=== PATIENT | female | born 1995 | race Caucasian/White ===

== ENCOUNTER 2021-03-30 00:17 | Emergency (ER) | payer OTHER, SELFPAY ==
--- NOTE | ~2021-03-30 | CT_ITS ---
EXAMINATION: NONCONTRAST HEAD CT NONCONTRAST CERVICAL SPINE CT INDICATION INFORMATION: Fall, syncope, neck pain COMPARISON: 09/07/2008 TECHNIQUE: Separate noncontrast CT examinations of the head and cervical spine were performed. Coronal head CT images and coronal and sagittal cervical spine images were created at the technologist workstation. DLP: 892 mGy-cm DOSE LOWERING TECHNIQUES: This CT examination was performed using dose optimization techniques as appropriate, variously including the following: - Automated exposure control - Adjustment of mA and/or kV according to patient size (this includes techniques or standardized protocols for targeted exams were dose is matched to indication/reason for exam; i.e. extremities or head) - Use of iterative reconstruction technique FINDINGS: Head: There is no evidence of acute intracranial hemorrhage or territorial infarction. No abnormal mass-effect or midline shift is seen. Engel to white matter differentiation is well preserved. No extra-axial fluid collections are identified. The ventricles are normal in size. There is no abnormal attenuation within the brain parenchyma. The osseous structures and soft tissues are normal. The mastoid air cells are well-aerated. There is mucosal thickening of the maxillary sinuses and anterior ethmoid air cells. Cervical spine: There is anatomic alignment of the vertebral bodies and posterior elements. Vertebral body heights are maintained. Intervertebral disc spaces are preserved. No evidence of acute fracture. No prevertebral soft tissue swelling. Visualized portions of the lung apices are unremarkable. The thyroid gland appears somewhat heterogeneous. CT/CT cervical spine wo con IMPRESSION: No acute findings identified in the head or cervical spine.
--- NOTE | ~2021-03-30 | CT_ITS ---
EXAMINATION: NONCONTRAST HEAD CT NONCONTRAST CERVICAL SPINE CT INDICATION INFORMATION: Fall, syncope, neck pain COMPARISON: 09/07/2008 TECHNIQUE: Separate noncontrast CT examinations of the head and cervical spine were performed. Coronal head CT images and coronal and sagittal cervical spine images were created at the technologist workstation. DLP: 892 mGy-cm DOSE LOWERING TECHNIQUES: This CT examination was performed using dose optimization techniques as appropriate, variously including the following: - Automated exposure control - Adjustment of mA and/or kV according to patient size (this includes techniques or standardized protocols for targeted exams were dose is matched to indication/reason for exam; i.e. extremities or head) - Use of iterative reconstruction technique FINDINGS: Head: There is no evidence of acute intracranial hemorrhage or territorial infarction. No abnormal mass-effect or midline shift is seen. Engel to white matter differentiation is well preserved. No extra-axial fluid collections are identified. The ventricles are normal in size. There is no abnormal attenuation within the brain parenchyma. The osseous structures and soft tissues are normal. The mastoid air cells are well-aerated. There is mucosal thickening of the maxillary sinuses and anterior ethmoid air cells. Cervical spine: There is anatomic alignment of the vertebral bodies and posterior elements. Vertebral body heights are maintained. Intervertebral disc spaces are preserved. No evidence of acute fracture. No prevertebral soft tissue swelling. Visualized portions of the lung apices are unremarkable. The thyroid gland appears somewhat heterogeneous. CT/CT head/brain wo con IMPRESSION: No acute findings identified in the head or cervical spine.
--- NOTE | ~2021-03-30 | XR_ITS ---
EXAMINATION: XR HIP, LEFT CLINICAL INFORMATION: Fall with left hip pain COMPARISON: 12/30/2018 TECHNIQUE: Two views of the left hip. FINDINGS: Alignment across the hips is anatomic, and joint spaces are preserved. No acute fracture is seen. Sacroiliac joints appear intact. XR/XR hip LT w PEL1V IMPRESSION: No acute findings.
--- NOTE | 2021-03-30 00:37 | ECG_ITS ---
Test Reason : SYNCOPAL EPISODE Blood Pressure : / mmHG Vent. Rate : 067 BPM Atrial Rate : 067 BPM P-R Int : 156 ms QRS Dur : 092 ms QT Int : 428 ms P-R-T Axes : 034 016 022 degrees QTc Int : 452 ms Sinus rhythm with marked sinus arrhythmia Otherwise normal ECG When compared with ECG of 07-SEP-2008 19:07, No significant changes seen Referred By: Denice Fallon Electronically Signed By:Chaim Leos
--- NOTE | 2021-03-30 00:41 | ED_ITS ---
HPI - General Adult General Chief complaint: Fall Stated complaint: fall w/ head strike + LOC Time Seen by Provider: 03/30/21 00:36 Source: patient and EMS Mode of arrival: EMS Limitations: no limitations History of Present Illness HPI narrative: 25-year-old female came in by ambulance for evaluation after her syncopal episode. Patient was standing eating then felt nauseous, the patient passed out with complete loss of consciousness, patient had her head and complaining of neck pain, patient regained her consciousness few minutes after, patient is complaining of headache and neck pain, and left hip pain, patient declined any chest pain, no shortness of breath. Never had this symptoms in the past. Related Data Home Medications Medication Instructions Recorded Confirmed calcium carbonate-vitamin tab PO 08/16/20 08/16/20 D2-minerals tablet citalopram 20 mg tablet 20 mg PO DAILY 08/16/20 08/16/20 clonidine HCl 0.1 mg tablet 0.1 mg PO BID 08/16/20 08/16/20 oxcarbazepine 150 mg tablet 150 mg PO BID 08/16/20 08/16/20 pantoprazole 40 mg tablet,delayed 40 mg PO DAILY 08/16/20 08/16/20 release quetiapine 25 mg tablet 25 mg PO BEDTIME 08/16/20 08/16/20 Allergies Allergy/AdvReac Type Severity Reaction Status Date / Time No Known Allergies Allergy Verified 08/16/20 09:01 [No Known Allergies*] Review of Systems Review of Systems: All other systems are reviewed and are negative Constitutional: Reports as per HPI and Reports no additional constitutional complaints Eyes: Reports as per HPI and Reports no additional eye complaints Reports system reviewed and no additional complaints, except as documented Cardiovascular: Reports as per HPI and Reports no additional cardiovascular complaints Respiratory: Reports as per HPI and Reports no additional respiratory complaints Gastrointestinal: Reports as per HPI and Reports no additional gastrointestinal complaints Genitourinary: Reports no additional female genitourinary complaints Musculoskeletal: Reports no additional musculoskeletal complaints Skin/Breast: Reports system reviewed and no additional complaints, except as docu Psychiatric: Reports no additional psychiatric complaints Endocrine: Reports no additional endocrine complaints Hematologic/Lymphatic: Reports no additional hematologic/lymphatic complaints Allergic/Immunologic: Reports no additional allergic/immunologic complaints Reports system reviewed and no additional complaints, except as documented and Reports Abnormal speech present [facility] Past Medical History Medical History Bipolar 1 disorder Hyperlipidemia Migraines Obesity Surgical History Gastric bypass status for obesity H/O adenoidectomy Hx of tonsillectomy Family History Family History Father HTN (hypertension) Mother No problems noted. Maternal Aunt Breast cancer Social History Social History Alcohol intake: current Alcohol intake frequency: a few times a month Advance Directives: No Advance Directives Information Provided: Yes Patient : No Physical Exam Vital Signs: Vital Signs: Last Vital Signs Pulse 88 03/30/21 00:43 Resp 16 03/30/21 00:43 BP 122/64 03/30/21 00:43 Pulse Ox 99 03/30/21 00:43 BMI result Body Mass Index 31.1 vital signs have been reviewed as appeared to be correct. Blood pressure normal. Heart rate normal. Respiration rate normal. Temperature normal. Oxygen saturation normal. Appearance: Alert. Oriented X3. No acute distress. GCS of 15 Head: Normal external exam. Normocephalic. Atraumatic. No Dickey signs noted. No raccoon eyes noted Eyes: PERRLA. EOMI. Conjunctiva and sclera normal. Eyelids normal. ENT: TM's Normal. Pharynx normal. Uvula midline. Moist mucous membranes. No trismus noted. No drooling noted. No muffled voice noted. Neck: Normal inspection. Neck supple. FROM. No adenopathy. Thyroid Normal. No meningeal signs. No neck mass noted. CVS: Normal heart rate and rhythm. Heart sound normal. No murmurs noted. Pulses normal throughout. Respiratory: No respiratory distress. Painless inspiration. Breath sounds nor mal. No wheezes/rales/rhonchi noted. Chest nontender. No accessory muscle usage noted or decreased air movement noted. Abdomen: Soft and nontender. Bowel sounds normal in all 4 quadrants. No distent ion noted. No organomegaly noted. No visible injury noted. Back: No CVA tenderness. Full range of motion noted. Skin: Skin warm and dry. Normal skin color. Normal skin turgor. No rashes/lesions/lacerations noted. Extremities: No lower extremity edema. Extremities exhibit normal range of mot ion. Extremities nontender. Neuro: Oriented X 3. GCS of 15 Cranial nerve exam: II-XII are grossly intact No motor deficit. No sensory deficit. Reflexes normal. Course Course Course Narrative: Assessment and plan. 25-year-old female came in after syncopal episode likely vasovagal in origin, patient has unremarkable EKG, unremarkable labs including cardiac enzymes, head/ C-spine/ left hip x-ray are pending sign out to Dr. Kennedy to check the result, Discharge home is expected if negative. Medical Decision Making Lab Data Lab results reviewed: Yes I reviewed the patient's lab results. Result diagrams: 03/30/21 01:19 03/30/21 01:19 Labs: Lab Results 03/30/21 03/30/21 03/30/21 Range/Units 01:19 01:19 01:19 WBC 7.2 (4.8-10.8) X10*3/uL RBC 3.77 L (4.20-5.50) X10*6/uL Hgb 12.0 (12.0-16.0) g/dl Hct 34.9 L (37.0-47.0) % MCV 92.6 (80.0-98.0) fL MCH 31.8 (27.0-33.0) pg MCHC 34.4 (31.0-35.0) g/dl RDW 11.9 (11.0-16.0) % Plt Count 241 (160-400) X10*3/uL MPV 9.7 (9.4-12.3) fL Immature Gran % (Auto) 0.1 (0.0-0.4) % Neut % (Auto) 55.7 (45-73) % Lymph % (Auto) 29.3 (20-40) % Rankin % (Auto) 7.9 (2-11) % Eos % (Auto) 6.4 H (0-4) % Baso % (Auto) 0.6 (0-2) % Lymph # (Auto) 2.1 (1.2-4.9) X10*3/uL Rankin # (Auto) 0.6 (0.1-1.2) X10*3/uL Eos # (Auto) 0.5 H (0.0-0.4) X10*3/uL Baso # (Auto) 0.0 (0.0-0.2) X10*3/uL Abs Immat Gran (auto) 0.01 (0.00-0.03) X10*3/uL Absolute Neuts (auto) 4.0 (2.0-8.3) x10*3/uL Absolute Nucleated RBC 0.000 (0.0-0.012) X10*3/uL Nucleated RBC % (auto) 0.0 (0.0-0.2) /100WBC Sodium 139 (135-145) mmol/L Potassium 3.4 (3.3-5.1) mmol/L Chloride 108 (96-108) mmol/L Carbon Dioxide 24 (22-29) mmol/L Anion Gap 10 L (12-20) BUN 11 (9-16) mg/dL Creatinine 0.71 (0.5-1.4) mg/dL Estim Creat Clear Calc 112.0 Estimated GFR > 60 Random Glucose 106 (60-115) mg/dL Calcium 9.0 (8.4-10.2) mg/dL Total Bilirubin < 0.2 (0.0-1.0) mg/dL Direct Bilirubin < 0.2 (0.0-0.5) mg/dL AST 11 (5-31) U/L ALT 7 (0-31) U/L Alkaline Phosphatase 47 (39-117) U/L Troponin I High Sens < 3.5 (<3.5-17.0) ng/L Total Protein 6.1 L (6.5-8.0) g/dL Albumin 3.8 (3.5-5.0) g/dL Lipase 33 (8-78) U/L Beta HCG, Quant < 2 mIU/mL COVID-19 ([facility]) (Negative) COVID-19 Clin Com 03/30/21 Range/Units 01:19 WBC (4.8-10.8) X10*3/uL RBC (4.20-5.50) X10*6/uL Hgb (12.0-16.0) g/dl Hct (37.0-47.0) % MCV (80.0-98.0) fL MCH (27.0-33.0) pg MCHC (31.0-35.0) g/dl RDW (11.0-16.0) % Plt Count (160-400) X10*3/uL MPV (9.4-12.3) fL Immature Gran % (Auto) (0.0-0.4) % Neut % (Auto) (45-73) % Lymph % (Auto) (20-40) % Rankin % (Auto) (2-11) % Eos % (Auto) (0-4) % Baso % (Auto) (0-2) % Lymph # (Auto) (1.2-4.9) X10*3/uL Rankin # (Auto) (0.1-1.2) X10*3/uL Eos # (Auto) (0.0-0.4) X10*3/uL Baso # (Auto) (0.0-0.2) X10*3/uL Abs Immat Gran (auto) (0.00-0.03) X10*3/uL Absolute Neuts (auto) (2.0-8.3) x10*3/uL Absolute Nucleated RBC (0.0-0.012) X10*3/uL Nucleated RBC % (auto) (0.0-0.2) /100WBC Sodium (135-145) mmol/L Potassium (3.3-5.1) mmol/L Chloride (96-108) mmol/L Carbon Dioxide (22-29) mmol/L Anion Gap (12-20) BUN (9-16) mg/dL Creatinine (0.5-1.4) mg/dL Estim Creat Clear Calc Estimated GFR Random Glucose (60-115) mg/dL Calcium (8.4-10.2) mg/dL Total Bilirubin (0.0-1.0) mg/dL Direct Bilirubin (0.0-0.5) mg/dL AST (5-31) U/L ALT (0-31) U/L Alkaline Phosphatase (39-117) U/L Troponin I High Sens (<3.5-17.0) ng/L Total Protein (6.5-8.0) g/dL Albumin (3.5-5.0) g/dL Lipase (8-78) U/L Beta HCG, Quant mIU/mL COVID-19 ([facility]) Negative (Negative) COVID-19 Clin Com See Note Discharge Plan Discharge Clinical Impression: Syncope and collapse, Contusion of hip, left Patient Disposition: Still a Patient Instructions: Syncope (ED), Hip Contusion (ED) Prescriptions: No Action oxcarbazepine 150 mg tablet 150 mg PO BID RF: 0 clonidine HCl 0.1 mg tablet 0.1 mg PO BID RF: 0 citalopram 20 mg tablet 20 mg PO DAILY RF: 0 quetiapine 25 mg tablet 25 mg PO BEDTIME RF: 0 pantoprazole 40 mg tablet,delayed release (DR/EC) 40 mg PO DAILY RF: 0 calcium carb-vit D2-minerals Tablet PO RF: 0 Referrals: Sri Marrreo MD [Primary Care Provider] - 2 days
[2021-03-30 00:43] VITALS: BP 122/64; PULSE 88; RESP 16; O2SAT 99; BMI 31.1
[2021-03-30 01:24] LABS: Basophils Percent Auto 0.6 % (0-2); Eosinophils Absolute Auto 0.5 X10*3/uL (0.0-0.4); Eosinophils Percent Auto 6.4 % (0-4); Hematocrit 34.9 % (37.0-47.0); Imm Gran Abs Auto 0.01 X10*3/uL (0.00-0.03); Imm Gran Pct Auto 0.1 % (0.0-0.4); Lymphocytes Absolute Auto 2.1 X10*3/uL (1.2-4.9); Lymphocytes Percent Auto 29.3 % (20-40); MANUAL DIFF FLAG NO; Mean Corpuscular HGB Conc 34.4 g/dl (31.0-35.0); Mean Corpuscular Hemoglobin 31.8 pg (27.0-33.0); Mean Corpuscular Volume 92.6 fL (80.0-98.0); Mean Platelet Volume 9.7 fL (9.4-12.3); Monocytes Absolute Auto 0.6 X10*3/uL (0.1-1.2); Monocytes Percent Auto 7.9 % (2-11); Neutrophils Percent Auto 55.7 % (45-73); Platelet Count 241 X10*3/uL (160-400); Red Blood Count 3.77 X10*6/uL (4.20-5.50); Red Cell Distribution Width 11.9 % (11.0-16.0); White Blood Count 7.2 X10*3/uL (4.8-10.8)
[2021-03-30 01:36] LABS: COVID-19 Test Negative (Negative)
[2021-03-30 01:46] LABS: Troponin-I High Sensitivity < 3.5 ng/L (<3.5-17.0)
[2021-03-30 01:50] LABS: Alanine Aminotransferase 7 U/L (0-31); Albumin Level 3.8 g/dL (3.5-5.0); Alkaline Phosphatase 47 U/L (39-117); Anion Gap 10 (12-20); Aspartate Amino Transferase 11 U/L (5-31); Bilirubin Direct < 0.2 mg/dL (0.0-0.5); Bilirubin Total < 0.2 mg/dL (0.0-1.0); Blood Urea Nitrogen 11 mg/dL (9-16); Carbon Dioxide 24 mmol/L (22-29); Chloride 108 mmol/L (96-108); Estimated Glomerular Filt Rate > 60; Glucose Random 106 mg/dL (60-115); HCG Quantitative < 2 mIU/mL; Lipase 33 U/L (8-78); Potassium 3.4 mmol/L (3.3-5.1); Sodium 139 mmol/L (135-145); Total Protein 6.1 g/dL (6.5-8.0)
== END 2021-03-30 04:23 | disposition home or self-care (01) ==
PROVIDERS: Emergency Provider Emergency Medicine; PCP Internal Medicine
DX: R55 Syncope and collapse (principal); S70.02XA Contusion of left hip, initial encounter; W17.89XA Other fall from one level to another, initial encounter; Z20.822 Contact with and (suspected) exposure to COVID-19; M54.2 Cervicalgia; Y93.89 Activity, other specified; Y92.9 Unspecified place or not applicable; Y99.9 Unspecified external cause status
CPT/HCPCS: 36415; 70450; 72125; 73502; 80048; 80076; 83690; 84484; 84702; 85025; 87635; 93005; 99283; 99284

== ENCOUNTER → 2021-06-06 13:57 | Outpatient (BNVA) | payer OTHER, SELFPAY | PROVIDERS: PCP Internal Medicine; Visit Provider Advanced Practice Midwife | DX: Z97.5 Presence of (intrauterine) contraceptive device (principal); Z98.84 Bariatric surgery status | CPT/HCPCS: 99212 ==

== ENCOUNTER 2021-08-22 09:06 | Outpatient (REF) | payer OTHER, SELFPAY | END 2021-08-22 09:07 | disposition home or self-care (01) | LOC: HO.LAB 09:06 | PROVIDERS: PCP Internal Medicine; Visit Provider Obstetrics & Gynecology | DX: N76.4 Abscess of vulva (principal) | CPT/HCPCS: 56405; 87071; 87205; 99212 ==

== ENCOUNTER → 2021-09-08 08:37 | Outpatient (BNVA) | payer OTHER, SELFPAY | PROVIDERS: PCP Internal Medicine; Visit Provider Obstetrics & Gynecology | DX: N76.4 Abscess of vulva (principal) | CPT/HCPCS: 99212 ==

== ENCOUNTER → 2022-07-27 14:57 | Outpatient (BNVA) | payer OTHER, SELFPAY | PROVIDERS: Visit Provider Advanced Practice Midwife | DX: Z97.5 Presence of (intrauterine) contraceptive device (principal) | CPT/HCPCS: 81025; 99212 ==

== ENCOUNTER → 2022-08-06 09:55 | Outpatient (BNVA) | payer OTHER, SELFPAY | PROVIDERS: PCP Internal Medicine; Visit Provider Advanced Practice Midwife | DX: Z30.46 Encounter for surveillance of implantable subdermal contraceptive (principal) | CPT/HCPCS: 11983; 81025; 99212; J7307 ==

== ENCOUNTER → 2022-08-11 08:29 | Outpatient (BNVA) | payer OTHER, SELFPAY | PROVIDERS: PCP Internal Medicine; Visit Provider Obstetrics & Gynecology | DX: Z30.46 Encounter for surveillance of implantable subdermal contraceptive (principal); Z30.09 Encounter for other general counseling and advice on contraception | CPT/HCPCS: 11982; 81025; 99212 ==

== ENCOUNTER 2023-01-22 10:56 | Outpatient (REF) | payer OTHER, SELFPAY ==
[2023-01-28 01:38] LABS: HPV mRNA E6/E7 rflx Not Detected (Not Detected)
== END 2023-01-22 10:57 | disposition home or self-care (01) ==
LOC: HO.LNP 10:56
PROVIDERS: Visit Provider Advanced Practice Midwife
DX: Z01.419 Encounter for gynecological examination (general) (routine) without abnormal findings (principal); Z11.51 Encounter for screening for human papillomavirus (HPV); Z20.2 Contact with and (suspected) exposure to infections with a predominantly sexual mode of transmission
CPT/HCPCS: 0353U; 87480; 87510; 87624; 87660; 88142; 99395

== ENCOUNTER 2023-01-22 10:56 | Outpatient (AMB) | payer OTHER, SELFPAY ==
--- NOTE | 2023-01-22 11:33 | MHC.OFFVIS ---
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 She is on meds for bipolar and anxiety and depression but had been for quite a while and the Nexplanon was her 2nd Nexplanon. She has had discussions with her med provider who recommends that she does not need to worry about and interaction between those medications and replacing the Nexplanon which is what she would like to do she is currently using condoms but she does not like it and she has absolutely no interest in getting an IUD of any sort. She was recommended could consider a ParaGard IUD because of potential interactions between the Nexplanon and her medications. The Nexplanon needed to be removed because it was partially expelled please see the previous 2 or 3 notes from myself and Dr. Donovan. Patient sites normal regular monthly menses and says they always were more normal and regular monthly, even with the Nexplanon. [facility] Medical History (Updated 01/22/23 @ 12:04 by Viola Pineda CNM) Bipolar 1 disorder Syncope Shoulder pain Hyperlipidemia Obesity Migraines Surgical History Gastric bypass status for obesity H/O adenoidectomy Hx of tonsillectomy Family History Father HTN (hypertension) Mother No problems noted. Maternal Aunt Breast cancer Substance use disorder Paternal Aunt Substance use disorder Paternal Uncle Substance use disorder Sister Mental health disorder Social History Housing: House Alcohol intake: current Alcohol intake frequency: a few times a month Patient Tobacco Use Status: Never used Tobacco e-Cigarette/Vaping Use: Never Used Substance Use Type: Marijuana service: No Current occupational status: employed Female Reproductive History Menstrual Age of Menarche: 12 Duration of menses: 3-5 days Date of last menstrual period: 12/28/22 control method: none Total pregnancies: 0 Date of last pap smear: 12/11/19 (negative) History of abnormal pap smear: No Physical Exam Vital Signs: BMI result Body Mass Index 37.4 Const General: healthy appearing, comfortable, no acute distress, well developed and alert Nutritional Appearance: average body habitus Orientation/consciousness: patient oriented x3 Limitations: no limitations HEENT Head: Yes normocephalic Neck Neck: Yes normal visual inspection Chest Chest palpation & inspection: normal inspection of the chest Breast/axilla inspection: normal inspection of the breasts and normal inspection of the axillae Breast/axilla palpation: normal palpation of the breasts and normal palpation of the axillae Resp Effort & Inspection: normal respiratory effort GI Inspection: Yes normal to inspection, No Abdominal wall edema and No distended Palpation (GI): Soft to palpation and nontender General: Yes bladder normal to palpation External Female Exam: normal external appearance and normal appearance of the urethra Speculum Exam - Vagina: normal appearance of the vagina, normal palpation and normal vaginal discharge Speculum Exam - Cervix: normal appearance of the cervix, normal palpation and nontender Bimanual exam- vagina & uterus: normal bimanual exam, normal palpation, uterine size normal, bladder normal to palpation, consistency normal, normal palpation, uterine mobility normal, uterine shape normal, No Cervical tenderness present, non-tender and no cervical motion tenderness Bimanual Exam- Adnexa, other: normal adnexae, no masses, normal and No adnexal tenderness Neuro General: patient oriented x3 Assessment & Plan Assessment & Plan (1) Cervical cancer screening: Comment: neg hx of abnormals, last pap neg 2019, due 2022 Code(s): Z12.4 - Encounter for screening for malignant neoplasm of cervix (2) Well woman exam with routine gynecological exam: Code(s): Z01.419 - Encounter for gynecological examination (general) (routine) without abnormal findings (3) control counseling: Code(s): Z30.09 - Encounter for other general counseling and advice on contraception (4) Bipolar 1 disorder: Comment: on multiple meds for this and anxiety/ depression Code(s): F31.9 - Bipolar disorder, unspecified (5) Anxiety and depression: Comment: on multiple meds for these and bipolar Code(s): F41.9 - Anxiety disorder, unspecified; F32.A - Depression, unspecified Plan -----Discussed in this visit the following: healthy balanced diet, regular and consistent exercise, getting recommended health screens, doing the best she can for her particular health concerns, kegel exercises, pap smear screening and followup recommendations, mammography screening and SBE, normal changes in cycles in her life stage--- . Patient has been using condoms since removal of the Nexplanon as it was coming out she is a agricultural loan officer and though she does not think she overused her arm after insertion the last time it came out and she can not figure out what happened.. She came here and Dr. Donovan removed it completely please see his notes. In the process of that discussion there was a discussion about the fact that she was on several medications that can interact with the Nexplanon medications and she was recommended to consider a ParaGard IUD she however is absolutely terrified of IUDs and does not want to go there all. She liked the Nexplanon and she got regular menses with it and she wants to continue with it. She had a discussion with her med provider who provides her her all of her medications for her bipolar disease and anxiety and depression and because she is not getting those medications for seizure prevention, she was advised that there was no problem with her taking those medications while she was on the Nexplanon which she in fact had been for years. She wants to try for Nexplanon again and she is going to try to not use that arm for a longer period of time so that she does not risk expulsion again. 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 She loves it. Has been using condoms since and discussed that there are advantages to using condoms in that her discharge is perfect. Pap smear was done. She is not interested or worried about any other STI testing so just the cultures that were done along with the Pap smear. She signed the form for the Nexplanon I discussed that the next Nexplanon may cause a very different experience of her menses. But in any case I would only want to insert it and beginning few days of her. Her periods typically last about 4 days so it should be placed in the 1st 3 days of her period. Coding Level of Care Code Est Pt Prev Care [id number]) Diagnoses Cervical cancer screening Z12.4 Well woman exam with routine gynecological exam Z01.419 control counseling Z30.09 Bipolar 1 disorder F31.9 Anxiety and depression F41.9; F32.A
[2023-01-22 11:34] VITALS: BP 118/66; BMI 37.4
== END 2023-01-22 12:09 | disposition home or self-care (01) ==
PROVIDERS: PCP Internal Medicine; Visit Provider Advanced Practice Midwife
DX: Z01.419 Encounter for gynecological examination (general) (routine) without abnormal findings (principal); F31.9 Bipolar disorder, unspecified; F41.9 Anxiety disorder, unspecified; F32.A Depression, unspecified
CPT/HCPCS: 99395

== ENCOUNTER 2025-01-22 18:50 | Emergency (ER) | payer OTHER, SELFPAY ==
[2025-01-22 19:37] VITALS: BP 121/81; PULSE 52; RESP 18; TEMP 36.5; O2SAT 96; BMI 42.6
--- NOTE | 2025-01-22 19:44 | ED.GENADULT ---
HPI - General Adult General Chief complaint: Skin/Abscess/Foreign Body Stated complaint: vaginal cyst Time Seen by Provider: 01/22/25 21:02 Source: patient Limitations: no limitations History of Present Illness ED Provider: Freya Alves PA-C HPI narrative: 29-year-old female presents with vaginal cyst times 2-3 days. Patient noted a tender swelling along right labia that has since increased in size. Associated redness, warmth, no drainage from the site. Patient has had similar presentation in the past. Denies fever. Related Data Home Medications ?Medication ?Instructions ?Recorded ?Confirmed citalopram 20 mg tablet 20 mg PO DAILY 08/16/20 01/22/23 hydroxyzine HCl 10 mg tablet 10 mg PO BID PRN 07/17/21 01/22/23 oxcarbazepine 300 mg tablet 0 mg PO 07/17/21 01/22/23 trazodone 50 mg tablet 25 mg PO DAILY 01/16/22 01/22/23 cariprazine 1.5 mg capsule 1.5 mg PO DAILY 01/22/23 01/22/23 (Aminah) Previous Rx's ?Medication ?Instructions ?Recorded doxycycline hyclate 100 mg tablet 100 mg PO BID #13 tabs 01/22/25 Allergies Allergy/AdvReac Type Severity Reaction Status Date / Time No Known Allergies (No Known Allergy Verified 01/22/25 19:40 Allergies*) Review of Systems Review of Systems: Yes all other systems are reviewed and are negative Constitutional: Constitutional: Denies fatigue and Denies fever(s) Gastrointestinal: Gastrointestinal: Denies abdominal pain, Denies nausea and Denies vomiting Genitourinary: Genitourinary: Denies genital pruritis, Reports genital lesions, Denies pelvic pain, Denies vaginal discharge, Denies vaginal odor and Denies vaginal pruritus Endocrine: Endocrine: Denies fatigue PMFSH Past Medical History Attestation statement: The following information was validated with the patient. Medical History (Updated 01/23/25 @ 00:00 by Marc Nieto) Bipolar 1 disorder Syncope Shoulder pain Hyperlipidemia Obesity Migraines Surgical History Gastric bypass status for obesity H/O adenoidectomy Hx of tonsillectomy Family History Family History Father HTN (hypertension) Mother No problems noted. Maternal Aunt Breast cancer Substance use disorder Paternal Aunt Substance use disorder Paternal Uncle Substance use disorder Sister Mental health disorder Social History Social History Housing: House Alcohol intake: current Alcohol intake frequency: a few times a month Patient Tobacco Use Status: Never used Tobacco e-Cigarette/Vaping Use: Never Used Substance Use Type: Marijuana Advance Directives: No Advance Directives Information Provided: Yes service: No Current occupational status: employed Physical Exam ED Vital Signs: Vital Signs - 24 hr 01/22/25 19:37 01/22/25 22:52 Temperature 97.7 F 97.7 F Pulse Rate 52 52 Respiratory Rate 18 18 Blood Pressure 121/81 121/81 Pulse Oximetry 96 96 Oxygen Delivery Method Room Air Room Air BMI result Body Mass Index 42.6 Const Other: Alert well-appearing Orientation/consciousness: patient oriented x3 Resp Effort & Inspection: normal respiratory effort Cardio Other: Normal peripheral perfusion Other: Bartholin gland abscess noted right labia, no active drainage, overlying erythema, warmth, tender to palpation, central fluctuance Skin Other: Warm dry no rash Neuro General: patient oriented x3, gait normal, no focal motor deficits and CN's II-XI intact bilaterally Psych Other: Cooperative Course Course Course Narrative: RME: 29-year-old female presents to ED for painful cysts in inner vaginal labia. Patient has history of Bartholin cyst abscess. Patient's history of NSAIDs and drainage of abscess in the past. Patient to be evaluated in the ED Medications Administered Discontinued Medications Generic Name Dose Route Start Last Admin Trade Name Freq PRN Reason Stop Dose Admin Lidocaine HCl 10 ml 01/22/25 21:14 01/22/25 21:53 Lidocaine Hcl 1 % 20 Ml Vial INFILTRATI 01/22/25 21:15 10 ml ONCE ONE Administration Midazolam HCl 3 mg 01/22/25 21:14 01/22/25 21:53 Midazolam Hcl 2 Mg/2 Ml Vial IVPUSH 01/22/25 21:15 3 mg ONCE ONE Administration Morphine Sulfate 4 mg 01/22/25 21:14 01/22/25 21:52 Morphine Sulfate 4 Mg/Ml Cartridge IVPUSH 01/22/25 21:15 4 mg ONCE ONE Administration Protocol Lidocaine/Epinephrine/Tetracaine 3 ml 01/22/25 21:14 01/22/25 21:24 Lidocaine/Racepinep/Tetracaine 3 Ml Gel.Pf.Curry TOPICAL 01/22/25 21:15 3 ml ONCE ONE Administration Procedures Abscess I/D Site: bartholin's gland Side (if applicable): right Sedation/analgesia: midazolam and other (Morphine) Local Anesthetic: lidocaine 1%, with epi and other anesthetic (Let) Amount of anesthesia used (mL): 2 Technique: incised with blade and ultrasound guided Amount of fluid expressed (mL): 5 Sent for culture/gram staining?: No Irrigation: No Packing used?: iodoform Medical Decision Making Medical Decision Making MDM Narrative: 29-year-old female presents with vaginal cyst times 2-3 days. Patient noted a tender swelling along right labia that has since increased in size. Associated redness, warmth, no drainage from the site. Patient has had similar presentation in the past. Denies fever. Problem: Prior Bartholin gland cyst History: Per patient I have considered the following differential diagnoses: Bartholin gland cyst/abscess, cellulitis, folliculitis, syphilis, HSV, Plan: Patient has in abscess, we will I and D, place on doxy. We will premedicate with Versed and morphine, we will apply topical let, followed by lidocaine injection, we will use ultrasound guidance to drain the abscess. No indication for imaging or labs. Differential Diagnosis Differential Diagnoses: The differential diagnosis associated with the presentation includes See medical decision-making Admission/Observation Consideration of admission/observation: Escalation of care including admission/observation considered Not applicable Discharge Plan Discharge Clinical Impression: Bartholin's gland abscess Patient Disposition: Home, Self-Care Instructions: Incision and Drainage (ED) Additional Instructions: You had an abscess that was drained. See home care instructions. Take the doxycycline as directed. You can apply warm compresses to the site to help induce blood flow and healing. Follow up with your primary care provider as needed. Prescriptions: New doxycycline hyclate 100 mg tablet 100 mg PO BID Qty: 13 0RF No Action citalopram 20 mg tablet 20 mg PO DAILY hydroxyzine HCl 10 mg tablet 10 mg PO BID PRN oxcarbazepine 300 mg tablet 0 mg PO trazodone 50 mg tablet 25 mg PO DAILY Vraylar 1.5 mg capsule 1.5 mg PO DAILY Stand Alone Forms: Work/School Release Interventions: ED Discharge Assessment Last Done: 01/22/25 22:52 Discharge Date/Time: 01/22/25 22:53 Print Language: Tamazight
--- OUTSIDE RECORDS SUMMARY | 2025-01-22 21:03 | XMS_ITS | Encounter Summary ---
Author Organization [facility] Address [address] [place] [address] Care Team Providers Care Bar Captain Name Role Phone Cassy Sin MD Primary Care Provider [phone] Encounter Details Date Type Department Care Team (Late st Contact Info) Description 10/26/2024 Telephone [facility] - [facility] [address] [facility] [address] [place] [address] [place] [address] Social History Tobacco Use Types Packs/Day Years Used Date Smoking Tobacco: Never Smokeless Tobacco: Never Alcohol Use Standard Drinks/Week Comments No 0 (1 standard drink = 0.6 oz pur e alcohol) Comments Unknown Sex and Gender Information Value Date Recorded Sex Assigned at Not on file Legal Sex Female 3:08 AM EST Gender Identity Not on file Sexual Orientation Not on file documented as of this encounter Progress Notes * Sapna Chisholm - 01/17/2025 3:32 PM EDT No return call to office for scheduling with a respiratory therapy technician. Referral completed and closed. Thank you. documented in this encounter Plan of Treatment Not on file documented as of this encounter Visit Diagnoses Not on filedocumented in this encounter Care Teams Bar Captain Relationship Specialty Start Date End Date Cassy Sin MD [address] [facility] [address] [place] [address] PCP - General Internal Medicine 05/12/24 documented as of this encounter
--- OUTSIDE RECORDS SUMMARY | 2025-01-22 21:03 | XMS_ITS | Clinical Summary ---
Author Organization [facility] Address [address] [place] [address] Phone Care Team Providers Care Content Designer Name Role Phone Cassy Sin MD Primary Care Provider [phone] Encounters Date Type Department Care Team Description 10/26/2024 Telephone [facility] - [address] [place] [address] Cassy Sin MD from Last 3 Months Surgical History Surgery Date Site/Laterality Comments TONSILLECTOMY ADENOIDECTOMY, BILATERAL MYRINGOTOMY AND TUBES PROCEDURE: [place] TONSILLECTOMY & ADENOIDECTOMY <AGE 12 Medical History Medical History Date Comments Depression DX:Depression Anxiety DX:Anxiety Bipolar 1 disorder (CMS/HCC V24, CMS/HCC V28) DX:Bipolar 1 disorder ([facility]) Mood swing DX:Mood swing Migraines 06/13/2020 DX:Migraines Hyperlipidemia 06/13/2020 DX:Hyperlipidemi a Allergic rhinitis 06/13/2020 DX:Allergic rh initis Class 1 obesity due to exces s calories without serious comorbidity with body mass index (BMI) of 30.0 to 30.9 in adult 09/19/2019 DX:Class 1 obesity due to ex cess calories without serious comorbidity with body mass index (BMI) of 30.0 to 30.9 in adult Family History Medical History Relation Name Comments Hypertension Father No Known Problems Mother Relation Name Status Comments Father Alive Mother Alive Social History Tobacco Use Types Packs/Day Years Used Date Smoking Tobacco: Never Smokeless Tobacco: Never Alcohol Use Standard Drinks/Week Comments No 0 (1 standard drink = 0.6 oz pur e alcohol) Comments Unknown Sex and Gender Information Value Date Recorded Sex Assigned at Not on file Legal Sex Female 3:08 AM EST Gender Identity Not on file Sexual Orientation Not on file Obstetrics History Last Filed Vital Signs Vital Sign Reading Time Taken Comments Blood Pressure 110/77 02/23/2023 8:45 AM EST Pulse 88 02/23/2023 8:45 AM EST Temperature - - Respiratory Rate - - Oxygen Saturation - - Inhaled Oxygen Concentration - - Weight 93.9 kg (207 lb 0.7 oz) 02/23/2023 8:45 A M EST Height 154.9 cm (5' 1 ) 02/23/2023 8:45 AM EST Body Mass Index 39.12 02/23/2023 8:45 AM EST Plan of Treatment Health Maintenance Due Date Last Done Comments DTaP,Tdap,and Td Vaccines (1 - Tdap) 09/26/2014 Hepatitis B Vaccines (1 of 3 - 19+ 3-dose series) 09/26/2014 Cervical Cancer Screening: P ap Smear 09/26/2016 Cholesterol Screening (Lipid Panel) 03/28/2022 HIV Screening 03/28/2022 Hepatitis C Screening 03/28/2022 Social Influencers of Health Screening 03/28/2022 HPV Vaccines (1 - 3-dose SCD M series) 09/26/2022 Depression Screening 04/19/2024 COVID-19 Vaccine ( - 2023-2 5 season) 2024 Influenza Vaccine (#1) 2024 RSV Immunization Adult Patie nts (1 - 1-dose 75+ series) 09/26/2070 HIB Vaccines Aged Out No longer eligi ble based on patient's age to complete this topic Hepatitis A Vaccines Aged Out No long er eligible based on patient's age to complete this topic IPV Vaccines Aged Out No longer eligi ble based on patient's age to complete this topic MMR Vaccines Aged Out No longer eligi ble based on patient's age to complete this topic Meningococcal ACWY Vaccine Aged Out N o longer eligible based on patient's age to complete this topic Meningococcal B Vaccine Aged Out No l onger eligible based on patient's age to complete this topic Pneumococcal Vaccine: Pediat rics (0 to 5 Years) and At-Risk Patients (6 to 49 Years) Aged Out No longer eligible b ased on patient's age to complete this topic RSV Immunization Patients Un katie 20 months Aged Out No longer eligible b ased on patient's age to complete this topic Varicella Vaccines Aged Out No longer eligible based on patient's age to complete this topic Insurance [facility] Care Teams Content Designer Relationship Specialty Start Date End Date Cassy Sin MD [address] [place] [phone] PCP - General Internal Medicine 05/12/24
--- OUTSIDE RECORDS SUMMARY | 2025-01-22 21:03 | XMS_ITS | Clinical Summary ---
Author Organization [employer] Address [address] [facility] [address] [place] [address] Care Team Providers Care Microwave Oven Assembler Name Role Phone Unavailable Primary Care Provider Unavailabl e Social History Tobacco Use Types Packs/Day Years Used Date Smoking Tobacco: Never Assessed Comments Unknown Sex and Gender Information Value Date Recorded Sex Assigned at Female 07/12/2023 10:10 AM EDT Legal Sex Female 10:00 AM EDT Gender Identity Female 07/12/2023 10:10 AM EDT Sexual Orientation Not on file Plan of Treatment Health Maintenance Due Date Last Done Comments Depression Screening 1995 HIV Screening 1995 SDOH Screening 1995 Disability Screening 1995 Alcohol/Substance Use Screening 2007 Tobacco Screening 2007 Family Planning (PISQ) 09/26/2010 HPV Vaccines (1 - 3-dose series) 09/26/2010 Hepatitis C Screening 09/26/2013 DTaP/Tdap/Td Vaccines (1 - Tdap) 09/26/2014 Hepatitis B Vaccines (1 of 3 - 19+ 3-dose series) 09/26/2014 Pap Smear 09/26/2016 COVID-19 Vaccine (1 - 2023-2 5 season) 2024 Influenza Vaccine (#1) 2024 Zoster Vaccines (1 of 2) 09/26/2045 RSV Patients and Pa tients Aged 60 years or older (1 - 1-dose 75+ series) 09/26/2070 HIB [...] patient's age to complete this topic Meningococcal Vaccine Aged Out No chinedu ernesto eligible based on patient's age to complete this topic Pneumococcal Vaccine: Pediat rics (0 to 5 Years) and At-Risk Patients (6 to 49) Years Aged Out No longer eligible b ased on patient's age to complete this topic RSV under 20 months Aged Out No longe r eligible based on patient's age to complete this topic Rotavirus Vaccines Aged Out No longer eligible based on patient's age to complete this topic Insurance [facility] ([facility])
[2025-01-22] MEDS: Lidocaine/Racepinep/Tetracaine 3 ML GEL.PF.APP TOPICAL (21:24)
[2025-01-22] MEDS: Lidocaine HCl 1 % 20 ML VIAL 10 ML INFILTRATI (21:53)
[2025-01-22 22:52] VITALS: BP 121/81; PULSE 52; RESP 18; TEMP 36.5; O2SAT 96
== END 2025-01-22 22:53 | disposition home or self-care (01) ==
PROVIDERS: Emergency Provider Emergency Medicine
DX: N75.8 Other diseases of Bartholin's gland (principal); N89.8 Other specified noninflammatory disorders of vagina
CPT/HCPCS: 10060; 96374; 96375; 99282; 99284; J2003; J2250; J2270

== ENCOUNTER 2025-03-28 16:03 | Outpatient (AMB) | payer OTHER, SELFPAY ==
[2025-03-28 16:07] VITALS: BP 118/66; BMI 42.2
--- NOTE | 2025-03-28 16:07 | A.OFFVIS_ITS ---
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 Complaining of urine your incontinence associated with urinary frequency and nocturia Last Pap/HPV was negative in 02/08 [facility] Medical History Bipolar 1 disorder Syncope Shoulder pain Hyperlipidemia Obesity Migraines Surgical History Gastric bypass status for obesity H/O adenoidectomy Hx of tonsillectomy Family History Father HTN (hypertension) Mother No problems noted. 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 Sexual orientation: Straight/Heterosexual Gender identity: Female Female Reproductive History Menstrual Age of Menarche: 12 Date of last menstrual period: 03/15/25 control method: none Total pregnancies: 0 Date of last pap smear: 01/26/23 Review of Systems Const All systems reviewed & are unremarkable except as noted in HPI and below Card Reports as per HPI Resp Reports as per HPI GI Reports as per HPI and Reports no additional complaints Reports as per HPI Physical Exam Vital Signs: Last Vital Signs BP 118/66 03/28/25 16:07 BMI result Body Mass Index 42.2 Const General: cooperative, healthy appearing and comfortable Chest Chest palpation & inspection: normal inspection of the chest and normal palpation of entire chest wall Breast/axilla inspection: normal inspection of the breasts and normal inspection of the axillae Breast/axilla palpation: normal palpation of the breasts, normal palpation of the axillae and no axillary lymphadenopathy Resp Effort & Inspection: normal respiratory effort Auscultation: clear to auscultation bilaterally Percussion: percussion normal Cardio Palpation: normal PMI Rate: regular rate Rhythm: regular rhythm Heart sounds: no murmurs and no rubs Peripheral pulses: Peripheral pulses 2+ throughout GI Inspection: Yes normal to inspection Palpation (GI): Soft to palpation, nontender, no guarding, not rigid and No hepatosplenomegaly present Percussion: Yes normal to percussion Auscultation: normal bowel sounds Rectal Exam - Female: deferred General: Yes bladder normal to palpation External Female Exam: No lesion Speculum Exam - Vagina: normal appearance of the vagina, normal palpation, norm al vaginal discharge and not erythematous Speculum Exam - Cervix: normal appearance of the cervix and normal palpation Bimanual exam- vagina & uterus: normal bimanual exam, normal palpation, uterine size normal, bladder normal to palpation, consistency normal and normal palpation Bimanual Exam- Adnexa, other: normal adnexae, no masses and no tenderness Assessment & Plan Assessment & Plan (1) Well woman exam: Code(s): Z01.419 - Encounter for gynecological examination (general) (routine) without abnormal findings Category: Medical Plan: Pap smear not indicated this year Counseled the patient about the recommended dietary allowance of 1000 mg of Calcium & 600 IU of vitamin D. The patient was instructed to perform monthly self-breast exams and to schedule an annual exam in a year; All questions answered and the patient verbalized understanding. Instructed the patient to schedule annual exam in a year (2) Urinary incontinence: Code(s): R32 - Unspecified urinary incontinence Category: Medical Plan: Discussed with the patient the different types of Urine incontinence, stress urinary incontinence, intrinsic sphincter deficiency, overactive bladder and its work up. We will refer to Urology. All questions answered, the patient verbalized understanding. Orders: Referrals Urology Referral R32 - Unspecified urinary incontinence Coding Level of Care Code Est Pt Prev Care 18-39y([id number]) Diagnoses Well woman exam Z01.419 Urinary incontinence R32
--- OUTSIDE RECORDS SUMMARY | 2025-03-29 00:46 | XMS_ITS | Clinical Summary ---
Author Organization [facility] [employer] Address [address] [place] [address] Phone Care Team Providers Care Doping Supervisor Name Role Phone Cassy Sin MD Primary Care Provider [phone] Surgical History Surgery Date Site/Laterality Comments TONSILLECTOMY ADENOIDECTOMY, BILATERAL MYRINGOTOMY AND TUBES PROCEDURE: [place] TONSILLECTOMY & ADENOIDECTOMY <AGE 12 Medical History Medical History Date Comments Depression DX:Depression Anxiety DX:Anxiety Bipolar 1 disorder ([facility] V24, CMS/[facility] V28) DX:Bipolar 1 disorder ([facility]) Mood swing DX:Mood swing Migraines 06/13/2020 DX:Migraines [...] on file Sexual Orientation Not on file Last Filed Vital Signs Vital Sign Reading [...] series) 09/26/2022 Depression Screening 04/19/2024 COVID-19 Vaccine (1 - 2024-2 6 season) 2024 Influenza Vaccine (#1) 2024 RSV [...] patient's age to complete this topic Insurance [facility] [employer] Care Teams Doping Supervisor Relationship Specialty Start Date End Date Cassy Sin MD [address] [place] [phone] PCP - General Internal Medicine 05/12/24
--- OUTSIDE RECORDS SUMMARY | 2025-03-29 00:46 | XMS_ITS | Clinical Summary ---
Author Organization [employer] Address [address] [facility] [address] [place] [address] Care Team Providers Care Flight Hostess Name Role Phone Unavailable Primary Care Provider [...] Pap Smear 09/26/2016 COVID-19 Vaccine (1 - 2024-2 6 season) 2024 Influenza Vaccine (#1) 2024 Zoster [...] patient's age to complete this topic Insurance [facility]
== END 2025-03-28 16:29 | disposition home or self-care (01) ==
LOC: HO.HWS 16:04
PROVIDERS: PCP Internal Medicine; Visit Provider Obstetrics & Gynecology
DX: Z01.419 Encounter for gynecological examination (general) (routine) without abnormal findings (principal); R32 Unspecified urinary incontinence
CPT/HCPCS: 99395; 99459

== ENCOUNTER → 2025-03-28 16:03 | Outpatient (BNVA) | payer OTHER, SELFPAY | PROVIDERS: PCP Internal Medicine; Visit Provider Obstetrics & Gynecology | DX: Z01.419 Encounter for gynecological examination (general) (routine) without abnormal findings (principal); R32 Unspecified urinary incontinence; Z71.3 Dietary counseling and surveillance; Z68.41 Body mass index [BMI] 40.0-44.9, adult | CPT/HCPCS: 99395 ==